=== PATIENT | female | born 1960 | race Caucasian/White ===

== ENCOUNTER 2018-05-21 13:56 | Outpatient (REF) | payer BC, SELFPAY ==
[2018-05-21 22:41] LABS: HCT 43.2 % (36.0-46.0); HGB 14.2 g/dL (12.0-15.5); Mean Corp. HGB Concentration 32.9 g/dL (32.0-36.0); Mean Corpuscular Hemoglobin 30.4 pg (27.0-33.0); Mean Corpuscular Volume 92.5 fL (80-95); Mean Platelet Volume 11.9 fL (8.0-11.0); Platelet Count 227 x1000/uL (130-400); RBC 4.67 m/cumm (4.00-5.20); RBC Distribution Width 13.4 % (11.7-14.6); White Blood Cell Count 6.81 k/cumm (4.4-10.8)
[2018-05-21 22:43] LABS: ALT 31 U/L (12-78); AST 28 U/L (15-37); Albumin 3.9 g/dL (3.4-5.0); Alkaline Phosphatase 121 U/L (46-116); Anion Gap 6.3 mmol/L (3-11); BUN 22 mg/dL (7-18); Bilirubin, Total 1.6 mg/dL (0.2-1.0); CO2 30.7 mmol/L (21.0-32.0); CREATININE 0.67 mg/dL (0.55-1.02); Calcium 9.7 mg/dL (8.5-10.1); Chloride 103 mmol/L (98-107); Creatine Kinase 109 U/L (26-192); Glucose 105 mg/dL (70-100); Potassium 3.3 mmol/L (3.5-5.1); Sodium 140 mmol/L (136-145); Total Protein 7.6 g/dL (6.4-8.2)
== END 2018-05-21 14:16 ==
LOC: NCHCN 13:56
PROVIDERS: PCP Family Medicine; Visit Provider Family Medicine
DX: M79.1 Myalgia (principal); Z01.818 Encounter for other preprocedural examination
CPT/HCPCS: 80053; 82550; 85027

== ENCOUNTER 2018-06-10 08:51 | Day surgery (SDC) | payer BC, SELFPAY ==
--- NOTE | 2018-06-07 15:06 | W.PIPPEYE ---
History of Present Illness Chief Complaint: Progressive decreased vision, left eye Narrative: Patient is a 57-year-old lady with history of myopia who presented with complaints of progressive decreased vision in her left eye at both distance and near. She notes it is not as clear as her right eye. She notes significant difficulty with glare from sunlight and headlights at night. On examination she was noted to have a central posterior subcapsular cataract in the left eye with significant glare disability. The option of cataract surgery was offered to the patient and she wished to proceed NOTE: The Chief Complaint, HPI, Past Medical History, Past Surgical History, Family History, Social History, Medications, and complete Ophthalmic Exam with detailed Assessment and Plan have already been documented in the patient's outpatient ophthalmic record and are not covered again in detail here. [facility] Social History Smoking/Tobacco Use Status: Never Meds Home Medications Medication Instructions Recorded Confirmed Type atorvastatin [Lipitor] 20 mg PO HS 06/28/15 06/05/18 History atorvastatin [Lipitor] 40 mg PO HS 06/28/15 06/05/18 History calcium carbonate-vitamin D3 1 ea PO DAILY 06/28/15 06/05/18 History citalopram [Celexa] 20 mg PO HS 06/28/15 06/05/18 History epinephrine [EpiPen 2-Alpesh] 0.3 mg IM ONCE PRN 06/28/15 06/05/18 History mqkrwasx-zzjbw-mud 2-C-D3-daphne 1 ea PO DAILY 06/28/15 06/05/18 History [Nvibqnxc-Mgdajh-OPK with vit D] hydrochlorothiazide 25 mg PO DAILY tab-cap 06/28/15 06/05/18 History aspirin [Aspir-81] 81 mg PO HS 06/05/18 06/05/18 History potassium citrate 10 meq PO DAILY 06/05/18 06/05/18 History Allergies Allergy/AdvReac Type Severity Reaction Status Date / Time shrimp Allergy Unknown Unverified 09/14/16 13:45 Exam OCULAR EXAM:: Visual acuity at distance: With glasses 20/25 OD, 20/30 OS Pupils: Pupils equal, round, and reactive without afferent pupillary defect IOP: 16 OD 15 OS Extraocular Motility: Normal Pertinent Slit Lamp Findings: Significant for pupils dilating to 6 mm OU. Trace posterior subcapsular cataract, right eye 1+ central posterior subcapsular cataract, left eye Dilated Funduscopic Examination: Disc cupping is 0.35 OU. The optic nerves have good perfusion and normal color. The retinal vasculature is normal without significant tortuosity or abnormality. The maculas are normal in appearance with normal contour and foveal reflex appropriate for age. The peripheral retina and vitreous are normal. BRIGHTNESS ACUITY TESTING (BAT):: Off left eye 20/30 Low: 20/30 Medium: 20/40 High: 20/40 Assessment and Plan (1) Posterior subcapsular age-related cataract of left eye: Current visit: No Status: Acute Assessment: Visually significant cataract, left eye. Plan: Cataract extraction with intraocular lens implantation, left eye Note: NOTE:: The details of the planned surgery, including the risks, indications,limitations,expectations,outcome and possible complications were explained to the patient. The patient understands the complications including, but not limited to: infection, hemorrhage, posterior dislocation of the lens or nuclear fragments which may require the intervention of a vitreoretinal surgeon, possible loss of the eye, or from anesthetic complications. The patient has been made aware of the option of not having surgery, that vision following surgery may not be equal to that prior to surgery, and that the planned surgery may not achieve the intended results. Following this discussion, which the patient appeared to understand, the patient wishes to proceed with cataract surgery with lens implantation of the affected eye to improve and maximize vision.
--- NOTE | 2018-06-07 15:10 | POEE_ITS ---
History of Present Illness Chief Complaint: Progressive decreased vision, left eye Narrative: Patient is a 57-year-old lady with history of myopia who presented with complaints of progressive decreased vision in her left eye at both distance and near. She notes it is not as clear as her right eye. She notes significant difficulty with glare from sunlight and headlights at night. On examination she was noted to have a central posterior subcapsular cataract in the left eye with significant glare disability. The option of cataract surgery was offered to the patient and she wished to proceed NOTE: The Chief Complaint, HPI, Past Medical History, Past Surgical History, Family History, Social History, Medications, and complete Ophthalmic Exam with detailed Assessment and Plan have already been documented in the patient's outpatient ophthalmic record and are not covered again in detail here. [facility] Social History Smoking/Tobacco Use Status: Never Meds Home Medications Medication Instructions Recorded Confirmed Type atorvastatin [Lipitor] 20 mg PO HS 06/28/15 06/05/18 History atorvastatin [Lipitor] 40 mg PO HS 06/28/15 06/05/18 History calcium carbonate-vitamin D3 1 ea PO DAILY 06/28/15 06/05/18 History citalopram [Celexa] 20 mg PO HS 06/28/15 06/05/18 History epinephrine [EpiPen 2-Alpesh] 0.3 mg IM ONCE PRN 06/28/15 06/05/18 History gkphzobf-erfnq-crx 2-C-D3-daphne 1 ea PO DAILY 06/28/15 06/05/18 History [Mlkznwxm-Sltmtk-VIR with vit D] hydrochlorothiazide 25 mg PO DAILY tab-cap 06/28/15 06/05/18 History aspirin [Aspir-81] 81 mg PO HS 06/05/18 06/05/18 History potassium citrate 10 meq PO DAILY 06/05/18 06/05/18 History Allergies Allergy/AdvReac Type Severity Reaction Status Date / Time shrimp Allergy Unknown Unverified 09/14/16 13:45 Exam OCULAR EXAM:: Visual acuity at distance: With glasses 20/25 OD, 20/30 OS Pupils: Pupils equal, round, and reactive without afferent pupillary defect IOP: 16 OD 15 OS Extraocular Motility: Normal Pertinent Slit Lamp Findings: Significant for pupils dilating to 6 mm OU. Trace posterior subcapsular cataract, right eye 1+ central posterior subcapsular cataract, left eye Dilated Funduscopic Examination: Disc cupping is 0.35 OU. The optic nerves have good perfusion and normal color. The retinal vasculature is normal without significant tortuosity or abnormality. The maculas are normal in appearance with normal contour and foveal reflex appropriate for age. The peripheral retina and vitreous are normal. BRIGHTNESS ACUITY TESTING (BAT):: Off left eye 20/30 Low: 20/30 Medium: 20/40 High: 20/40 Assessment and Plan (1) Posterior subcapsular age-related cataract of left eye: Current visit: No Status: Acute Assessment: Visually significant cataract, left eye. Plan: Cataract extraction with intraocular lens implantation, left eye Note: NOTE:: The details of the planned surgery, including the risks, indications, limitations,expectations,outcome and possible complications were explained to the patient. The patient understands the complications including, but not limited to: infection, hemorrhage, posterior dislocation of the lens or nuclear fragments which may require the intervention of a vitreoretinal surgeon, possible loss of the eye, or from anesthetic complications. The patient has been made aware of the option of not having surgery, that vision following surgery may not be equal to that prior to surgery, and that the planned surgery may not achieve the intended results. Following this discussion, which the patient appeared to understand, the patient wishes to proceed with cataract surgery with lens implantation of the affected eye to improve and maximize vision.
[2018-06-10 09:21] VITALS: BP 143/86; PULSE 65; RESP 18; TEMP 36.2; O2SAT 97
[2018-06-10] MEDS: Povidone-Iodine Ophth 30 ML BTL (10:23)
[2018-06-10] MEDS: Lidocaine 2% Jelly 6 ML SYR (10:23)
[2018-06-10] MEDS: Lidocaine 1% Pres-Free 5 ML VIAL (10:23)
[2018-06-10] MEDS: Balanced Salt Soln.-PLUS 500 ML BAG (10:23)
--- NOTE | 2018-06-10 10:45 | W.PM.DSUDISC ---
Discharge Plan Discharge Details Reason For Visit: CATARACT OS Attending Provider: Diallo Garcia Primary Care Provider: Hiral Lopez V Home Meds and New Rx's Prescriptions: No Action atorvastatin [Lipitor] 40 MG tablet 40 mg PO HS RF: 0 atorvastatin [Lipitor] 20 MG tablet 20 mg PO HS RF: 0 citalopram [Celexa] 20 MG tablet 20 mg PO HS RF: 0 hydrochlorothiazide 25 MG tablet 25 mg PO DAILY RF: 0 epinephrine [EpiPen 2-Alpesh] 0.3 MG/0.3 ML auto-injector 0.3 mg IM ONCE PRNRF: 0 xssuhhey-lqnmx-apw 2-C-D3-daphne [Thhgwuhu-Btvbgk-SHA with vit D] 1 EACH tablet 1 ea PO DAILY RF: 0 calcium carbonate-vitamin D3 1 EACH tablet 1 ea PO DAILY RF: 0 aspirin [Aspir-81] 81 mg Tablet,Delayed Release (Dr/Ec) 81 mg PO HS RF: 0 potassium citrate 10 mEq (1,080 mg) Tablet Extended Release 10 meq PO DAILY RF: 0 Discharge Instructions Stand Alone Forms: Post-op Topical Cataract, Yani Daniel (DSU) DS: Diagnosis Discharge Diagnosis (1) Posterior subcapsular age-related cataract of left eye: Status: Resolved
--- NOTE | 2018-06-10 10:45 | W.PM.OP ---
Date of service: 06/10/18 Time of Service: 10:45 Operative Note DATE OF PROCEDURE: 06/10/18 PRE-OP DIAGNOSIS: Cataract, left eye POST-OP DIAGNOSIS: same PROCEDURE: Cataract extraction using phacoemulsification with intraocular lens implant, left eye SURGEON: Diallo Garcia ANESTHESIA: MAC and local (sub-tenon's anesthetic infiltration) PATHOLOGY: none sent COMPLICATIONS: None Patient was transported to: same day Patient's condition: stable Implants: [employer] Shahbaz / [employer] Tecnis [id number] Indications: Progressive decreased vision due to cataract, left eye Procedure Description: CATARACT SURGERY OPERATIVE REPORT PREOPERATIVE DIAGNOSIS: Posterior subcapsular cataract, left eye POSTOPERATIVE DIAGNOSIS: Same OPERATION: Cataract extraction using phacoemulsification with posterior chamber intraocular lens implant, left eye. IOL: IOL Electrical Instrumentation Technician/Model: [employer] Shah[employer] / JOSI Tecnis [id number] IOL Power: +15.50 diopters IOL Serial Number: [id number] Optic Diameter: 6.0mm Haptic/Overall Diameter: 13.0mm PHACO INFO: JorjePhilo Mediaon Vision System with OZil and Active Fluidics Cumulative Dispersed Energy (CDE): 4.06 seconds SURGEON: Diallo Garcia MD, ADELINA ANESTHESIA: Monitored Anesthesia Care (MAC), with local sub-tenon's anesthetic infiltration COMPLICATIONS: None SPECIMENS: None INDICATIONS FOR PROCEDURE: Patient is a 57-year-old lady with complaints of progressive decreased vision in both eyes at both distance and near. She also notes significant difficulty driving at night. On examination she was noted to have a central posterior subcapsular cataract in the left eye. The option of cataract surgery was offered to the patient and she wished to proceed. PROCEDURE: The correct surgical eye was identified and marked as the left eye and the pupil was dilated in the preoperative area using mydriatics, cycloplegics, and NSAIDS (except in aspirin allergic patients). The dilated pupil size was 7.5 mm. Oral sedation was administered in the form of an Imprimis MKO Melt (midazolam 3mg/ketamine 25mg/ondansetron 2mg). The patient was brought to the operating room where cardiopulmonary monitoring was instituted and surgical time-out was performed, confirming the correct operative eye and IOL power. Topical anesthesia was administered and ophthalmic povidone-iodine 5% was instilled into the conjunctival fornices. Lidocaine gel was applied to the cornea and the augustina-ocular area was prepped with Betadine 10% solution and draped in the usual sterile fashion for intraocular surgery. Steri-strips were used to cover the lashes and lid margins and an adhesive eye drape was placed. Care was taken to isolate the lashes and lid margins under the Steri-strips and adhesive eye drape. A lid speculum was placed between the lids of the operative eye and the Ralph-Martha operating microscope was maneuvered into position. Kenisha scissors were then used to make a conjunctival buttonhole approximately 6mm posterior to the limbus in the inferonasal quadrant. Blunt dissection was carried out to expose bare sclera, and a blunt-tipped sub-tenon?s anesthesia cannula was introduced and passed posteriorly along the globe where non-preserved plain lidocaine was injected into posterior sub-Tenon?s space. A sideport knife was used to make a paracentesis port at the 12:00 postion and the anterior chamber was filled with Healon GV. A 2.4mm keratome knife was used to create a half-thickness groove at the limbus and then to construct a three-plane near-clear corneal tunnel extending 2.0mm into clear cornea at the 3:00 position. A flap was raised on the anterior capsule and capsulorhexis forceps were used to complete a continuous curvilinear capsulorhexis of 5.0mm. Balanced salt solution was then used to perform cortical cleaving hydrodissection and nuclear hydrodelineation until the lens could be freely rotated within the capsular bag. The lens nucleus was then disassembled and removed within the capsular bag and iris plane using phacoemulsification. Residual cortical material was removed using the 45-degree angled silicone I/A tip with 0.3mm port. The posterior capsule was carefully polished to remove as much residual lens epithelial cells as safely possible. The capsular bag was then inflated and the anterior chamber deepened with viscoelastic. The lens implant described above was inserted into the capsular bag using the JOSI [place] Injector. A Kuglen hook was used to dial the IOL into position. Residual viscoelastic was then removed first from posterior to the IOL, then from the anterior chamber using the I/A handpiece. The lens implant was noted to center nicely within the capsular bag. The incisions were stromally hydrated, and the anterior chamber was reformed using BSS. Then 0.4cc of moxifloxacin 1.5mg/ml were injected into the capsular bag and anterior chamber. The incisions were checked with a Weck spear and found to be secure. Several drops of ophthalmic povidone-iodine 5% were then applied to the eye followed by two drops of Imprimis combination moxifloxacin/dexamethasone solution. The drapes were removed and a clear plastic protective eye shield was placed over the eye. The patient was then returned to Same Day Surgery in stable condition.
--- NOTE | 2018-06-10 10:48 | ROE_ITS ---
Date of service: 06/10/18 Time of Service: 10:45 Operative Note DATE OF PROCEDURE: 06/10/18 PRE-OP DIAGNOSIS: Cataract, left eye POST-OP DIAGNOSIS: same PROCEDURE: Cataract extraction using phacoemulsification with intraocular lens implant, left eye SURGEON: Diallo Garcia ANESTHESIA: MAC and local (sub-tenon's anesthetic infiltration) PATHOLOGY: none sent COMPLICATIONS: None Patient was transported to: same day Patient's condition: stable Implants: Shahbaz and Shahbaz / [employer] Tecnis [id number] Indications: Progressive decreased vision due to cataract, left eye Procedure Description: CATARACT SURGERY OPERATIVE REPORT PREOPERATIVE DIAGNOSIS: Posterior subcapsular cataract, left eye POSTOPERATIVE DIAGNOSIS: Same OPERATION: Cataract extraction using phacoemulsification with posterior chamber intraocular lens implant, left eye. IOL: IOL Director Of Academic Support/Model: [employer] Shahbaz / JOSI Tecnis [id number] IOL Power: +15.50 diopters IOL Serial Number: [id number] Optic Diameter: 6.0mm Haptic/Overall Diameter: 13.0mm PHACO INFO: JorjeWellon Vision System with OZil and Active Fluidics Cumulative Dispersed Energy (CDE): 4.06 seconds SURGEON: Diallo Garcia MD, ADELINA ANESTHESIA: Monitored Anesthesia Care (MAC), with local sub-tenon's anesthetic infiltration COMPLICATIONS: None SPECIMENS: None INDICATIONS FOR PROCEDURE: Patient is a 57-year-old lady with complaints of progressive decreased vision in both eyes at both distance and near. She also notes significant difficulty driving at night. On examination she was noted to have a central posterior subcapsular cataract in the left eye. The option of cataract surgery was offered to the patient and she wished to proceed. PROCEDURE: The correct surgical eye was identified and marked as the left eye and the pupil was dilated in the preoperative area using mydriatics, cycloplegics, and NSAIDS (except in aspirin allergic patients). The dilated pupil size was 7.5 mm. Oral sedation was administered in the form of an Imprimis MKO Melt (midazolam 3mg/ketamine 25mg/ondansetron 2mg). The patient was brought to the operating room where cardiopulmonary monitoring was instituted and surgical time-out was performed, confirming the correct operative eye and IOL power. Topical anesthesia was administered and ophthalmic povidone-iodine 5% was instilled into the conjunctival fornices. Lidocaine gel was applied to the cornea and the augustina-ocular area was prepped with Betadine 10% solution and draped in the usual sterile fashion for intraocular surgery. Steri-strips were used to cover the lashes and lid margins and an adhesive eye drape was placed. Care was taken to isolate the lashes and lid margins under the Steri-strips and adhesive eye drape. A lid speculum was placed between the lids of the operative eye and the Ralph-Martha operating microscope was maneuvered into position. Kenisha scissors were then used to make a conjunctival buttonhole approximately 6mm posterior to the limbus in the inferonasal quadrant. Blunt dissection was carried out to expose bare sclera, and a blunt-tipped sub-tenon? s anesthesia cannula was introduced and passed posteriorly along the globe where non-preserved plain lidocaine was injected into posterior sub-Tenon?s space. A sideport knife was used to make a paracentesis port at the 12:00 postion and the anterior chamber was filled with Healon GV. A 2.4mm keratome knife was used to create a half-thickness groove at the limbus and then to construct a three-plane near-clear corneal tunnel extending 2.0mm into clear cornea at the 3:00 position. A flap was raised on the anterior capsule and capsulorhexis forceps were used to complete a continuous curvilinear capsulorhexis of 5.0mm. Balanced salt solution was then used to perform cortical cleaving hydrodissection and nuclear hydrodelineation until the lens could be freely rotated within the capsular bag. The lens nucleus was then disassembled and removed within the capsular bag and iris plane using phacoemulsification. Residual cortical material was removed using the 45-degree angled silicone I/A tip with 0.3mm port. The posterior capsule was carefully polished to remove as much residual lens epithelial cells as safely possible. The capsular bag was then inflated and the anterior chamber deepened with viscoelastic. The lens implant described above was inserted into the capsular bag using the JOSI [place] Injector. A Kuglen hook was used to dial the IOL into position. Residual viscoelastic was then removed first from posterior to the IOL, then from the anterior chamber using the I/A handpiece. The lens implant was noted to center nicely within the capsular bag. The incisions were stromally hydrated , and the anterior chamber was reformed using BSS. Then 0.4cc of moxifloxacin 1.5mg/ml were injected into the capsular bag and anterior chamber. The incisions were checked with a Weck spear and found to be secure. Several drops of ophthalmic povidone-iodine 5% were then applied to the eye followed by two drops of Imprimis combination moxifloxacin/dexamethasone solution. The drapes were removed and a clear plastic protective eye shield was placed over the eye. The patient was then returned to Same Day Surgery in stable condition.
== END 2018-06-10 11:19 | disposition home or self-care (01) ==
LOC: SUR 08:52
PROVIDERS: PCP Family Medicine; Visit Provider Ophthalmology
PROC: (CPT 66984; principal; 2018-06-10 11:10)
DX: H25.042 Posterior subcapsular polar age-related cataract, left eye (principal); I10 Essential (primary) hypertension
CPT/HCPCS: 66984; V2632

== ENCOUNTER 2019-01-31 10:43 | Outpatient (CLI) | payer BC, SELFPAY ==
[2019-01-31 11:56] LABS: ALT 33 U/L (12-78); AST 26 U/L (15-37); Albumin 3.5 g/dL (3.4-5.0); Alkaline Phosphatase 123 U/L (46-116); Anion Gap 6.4 mmol/L (3-11); BUN 14 mg/dL (7-18); Bilirubin, Total 1.6 mg/dL (0.2-1.0); CO2 31.6 mmol/L (21.0-32.0); CREATININE 0.63 mg/dL (0.55-1.02); Calcium 9.4 mg/dL (8.5-10.1); Chloride 101 mmol/L (98-107); Cholesterol 189 mg/dL (50-200); Glucose 100 mg/dL (70-100); HDL Cholesterol 42 mg/dL (40-60); LDL CHOLESTEROL 131 mg/dL (<100); Sodium 139 mmol/L (136-145); TSH 2.38 uIU/mL (0.358-3.74); Total Protein 6.9 g/dL (6.4-8.2); Triglyceride 73 mg/dL (30-150)
== END 2019-01-31 11:03 ==
PROVIDERS: PCP Family Medicine; Visit Provider Family Medicine
DX: I10 Essential (primary) hypertension (principal); E78.5 Hyperlipidemia, unspecified
CPT/HCPCS: 36415; 80053; 80061; 83721; 84443

== ENCOUNTER 2019-05-21 13:51 | Outpatient (REF) | payer BC, SELFPAY | END 2019-05-21 14:11 | LOC: NCHCN 13:51 | PROVIDERS: PCP Family Medicine; Visit Provider Physician Assistant Medical | DX: R30.0 Dysuria (principal) | CPT/HCPCS: 87480; 87510; 87660 ==

== ENCOUNTER 2019-12-10 13:44 | Outpatient (REF) | payer BC, SELFPAY ==
[2019-12-10 19:08] LABS: Abs Immature Grans 0.04 k/cumm (0.0-0.09); Absolute Basophil Count 0.03 k/cumm (0.0-0.2); Absolute Eosinophil Count 0.36 k/cumm (0.0-0.7); Absolute Lymphocyte Count 1.61 k/cumm (1.2-3.4); Absolute Monocyte Count 0.74 k/cumm (0.11-0.7); Absolute Neutrophil Count 6.54 k/cumm (1.2-6.7); Basophils % 0.3; Eosinophils % 3.9; HCT 42.9 % (36.0-46.0); HGB 14.4 g/dL (12.0-15.5); Immature Grans % 0.4 %; Lymphocytes % 17.3; Mean Corp. HGB Concentration 33.6 g/dL (32.0-36.0); Mean Corpuscular Hemoglobin 30.1 pg (27.0-33.0); Mean Corpuscular Volume 89.7 fL (80-95); Mean Platelet Volume 12.1 fL (8.0-11.0); Monocytes % 7.9; Neutrophils % 70.2; Platelet Count 227 x1000/uL (130-400); RBC 4.78 m/cumm (4.00-5.20); RBC Distribution Width 12.7 % (11.7-14.6); White Blood Cell Count 9.32 k/cumm (4.4-10.8)
[2019-12-10 19:28] LABS: ALT 41 U/L (14-59); AST 33 U/L (15-37); Calculated LDL 171 mg/dL (<100); Cholesterol 224 mg/dL (<200); HDL Cholesterol 40 mg/dL (40-60); TSH 1.58 uIU/mL (0.36-3.74); Triglyceride 65 mg/dL (<150)
[2019-12-10 19:50] LABS: Creatine Kinase 78 U/L (26-192); Lipase 122 U/L (73-393)
[2019-12-11 08:44] LABS: Albumin 3.7 g/dL (3.4-5.0); CREATININE 0.71 mg/dL (0.55-1.02); Total Protein 7.7 g/dL (6.4-8.2)
== END 2019-12-10 14:04 ==
LOC: NCHCN 13:44
PROVIDERS: PCP Family Medicine; Visit Provider Nurse Practitioner Family
DX: R53.83 Other fatigue (principal); E78.5 Hyperlipidemia, unspecified; R11.10 Vomiting, unspecified; M54.9 Dorsalgia, unspecified; K83.8 Other specified diseases of biliary tract; K80.20 Calculus of gallbladder without cholecystitis without obstruction
CPT/HCPCS: 80061; 82550; 83690; 82040; 82565; 84155; 84443; 84450; 84460; 85025

== ENCOUNTER 2019-12-10 13:58 | Outpatient (CLI) | payer BC, SELFPAY ==
--- NOTE | 2019-12-10 | DI.US_ITS ---
EXAM: US ABDOMEN CLINICAL HISTORY: RUQ ABDOMINAL PAIN, R10.9, +TABOR'S SIGN, ACHINESS, CONSTIPATION, NAUSEA, 6-POUND WEIGHT LOSS IN 2 WEEKS, LOSS OF APPETITE, H/O CHOLELITHIASIS TECHNIQUE: Ultrasound abdomen performed using standard protocol. COMPARISON: No exams were available for comparison FINDINGS: LIVER: The majority of the liver is echogenic consistent with fatty infiltration. The left lobe has a heterogeneous echogenicity with intrahepatic biliary ductal dilatation. Hepatopetal flow in the Po rtal Vein. GALLBLADDER: Multiple gallstones are present. There are stones noted within the gallbladder neck. N o evidence of wall thickening. No pericholecystic fluid identified. Gallbladder sludge is present. KIDNEYS: Kidneys are symmetric in size. No evidence of renal calculi. No evidence of hydronephrosis. No renal mass or cyst identified. BILIARY SYSTEM: Common bile duct measures 4.6. No intrahepatic biliary ductal dilation. TABOR'S SIGN: Negative. PANCREAS: Normal where visualized. SPLEEN: Not enlarged. ABDOMINAL AORTA AND IVC: Visualized portions normal caliber. ASCITES: None seen. IMPRESSION: 1. Heterogeneous echogenicity in the left lobe of the liver with intrahepatic biliary ductal dilatati on. Possibility of an obstructing mass or stone should be considered. A CT scan of the abdomen with out and with intravenous contrast material is recommended for further evaluation. 2. Cholelithiasis. Gallbladder sludge. No definite evidence of acute cholecystitis. 3. Hepatic steatosis. DATA REPOSITORY:
== END 2019-12-10 14:18 ==
PROVIDERS: PCP Family Medicine; Visit Provider Nurse Practitioner Family
DX: R10.11 Right upper quadrant pain (principal); K59.00 Constipation, unspecified; R11.0 Nausea; R63.4 Abnormal weight loss; K80.20 Calculus of gallbladder without cholecystitis without obstruction; K76.0 Fatty (change of) liver, not elsewhere classified; K76.89 Other specified diseases of liver
CPT/HCPCS: 76700

== ENCOUNTER 2019-12-11 08:30 | Outpatient (CLI) | payer BC, SELFPAY ==
--- NOTE | 2019-12-11 | DI.CT_ITS ---
EXAM: CT ABDOMEN WO/W CLINICAL HISTORY: ABD PAIN, R10.9, GALLSTONES, K80.20, TECHNIQUE: Imaging Protocol: Axial computed tomography images with coronal and sagittal reformatted images were created and reviewed CONTRAST MATERIAL: Intravenous: Omnipaque 350 Contrast volume:100 mL Oral: Yes COMPARISON: US ABDOMEN from 12/10/2019 FINDINGS: ABDOMEN: Lung Bases: Ill-defined noncalcified pulmonary nodules are seen in the bases. The findings are suspi cious for metastatic disease. Liver: There is decreased attenuation in the lateral segment of the left lobe of the liver. There ap pears to be mild intrahepatic biliary ductal dilatation in the left lobe. The remainder of the liver is unremarkable. Portal, Superior Mesenteric, and Splenic Veins: Unremarkable. Gallbladder and Biliary Tract: There are multiple stones present. No extrahepatic biliary ductal dil atation. Pancreas: The head and proximal body of the pancreas appears mildly atrophic. The tail of the pancre as has a solid appearance to it measuring 4.5 x 2.2 cm. A pancreatic mass cannot be excluded. There does appear to be mild narrowing of the adjacent splenic vein. Spleen: Normal. Adrenals: No masses seen. Kidneys: Normal size, contour and axis. No radiodense stones or obstructive uropathy. No masses seen. There are a few tiny hypodensities in the kidneys. They are too small for further characterization but likely reflect small cysts. Abdominal Aorta: Abdominal portion non-dilated. Mild atherosclerosis. Bowel: No obstruction or bowel wall thickening. Moderate amount of retained stool in the colon. Smal l hiatal hernia. Peritoneal Cavity: Soft tissue densities are seen associated with the omentum and adjacent to the gal lbladder. Findings are suspicious for omental metastatic disease. Lymph Nodes: Within normal limits. Bones: Degenerative changes are seen in the spine but no aggressive osseous lesions are identified. Soft Tissues: Unremarkable. IMPRESSION: 1. Solid appearing area in the tail of the pancreas suspicious for a pancreatic mass. Neoplasm shoul d be considered. There appears to be mild narrowing of the adjacent splenic vein. 2. Area of decreased attenuation in the lateral segment of the left lobe of the liver. Primary hepat ic mass or neoplasm should be considered. Associated mild intrahepatic biliary ductal dilatation is seen in the left lobe. 3. Soft tissue densities associated with the omentum and adjacent to the gallbladder and liver suspic ious for omental metastatic disease. 4. Multiple ill-defined pulmonary nodules suspicious for metastatic disease 5. Cholelithiasis. No extrahepatic biliary ductal dilatation. Incidental Findings Critical Findings RADIATION DOSE DELIVERED: DATA REPOSITORY: All CT scans at this facility are submitted to the National Radiology Data Registry (NRDR) Dose Index Registry (DIR) with the [employer] (A[employer]). RADIATION OPTIMIZATION: All CT scans at this facility use at least one of these dose optimization te chniques: automated exposure control; mA and/or kV adjustment per patient size (includes targeted exa ms where dose is matched to clinical indication); or iterative reconstruction.
[2019-12-11] MEDS: Breeza Beverage 473 ML BTL PO (11:28)
[2019-12-11] MEDS: Normal Saline - Diluent 50 ML VIAL IV (11:31)
[2019-12-11] MEDS: Omnipaque 350 MG/ML 100 ML BTL IJ (11:31)
== END 2019-12-11 08:50 ==
PROVIDERS: PCP Family Medicine; Visit Provider Nurse Practitioner Family
DX: R10.9 Unspecified abdominal pain (principal); K80.20 Calculus of gallbladder without cholecystitis without obstruction; R91.8 Other nonspecific abnormal finding of lung field; K86.89 Other specified diseases of pancreas; K76.89 Other specified diseases of liver; J98.4 Other disorders of lung; K66.8 Other specified disorders of peritoneum
CPT/HCPCS: 74170; J3490

== ENCOUNTER 2019-12-12 09:56 | Outpatient (CLI) | payer BC, SELFPAY ==
--- NOTE | 2019-12-12 14:42 | DI.CT_ITS ---
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 COMPARISON: CT ABDOMEN WO/W from 12/11/2019 FINDINGS: Tracheobronchial tree: Patent where visualized. Mediastinum and Mitzy: The largest mediastinal lymph node has a short axis diameter of 0.9 cm. There is no significant thoracic adenopathy present. Pulmonary parenchyma: There are multiple pulmonary nodules present. The largest measures 0.9 cm and is located in the left lower lobe. No focal consolidating infiltrates are present. Pleura: No effusion or pneumothorax. Heart: The heart is not dilated. Mild coronary artery calcifications are seen. No significant perica rdial effusion. Aorta: Thoracic aorta non-dilated. Atherosclerosis. Lymph nodes: Please see above. Bones: DISH is seen in the spine. No aggressive osseous lesions are identified. IMPRESSION: Multiple pulmonary nodules suspicious for metastatic disease. DATA REPOSITORY: All CT scans at this facility are submitted to the National Radiology Data Registry (NRDR) Dose Index Registry (DIR) with the [employer] (ACR). RADIATION OPTIMIZATION: All CT scans at this facility use at least one of these dose optimization te chniques: automated exposure control; mA and/or kV adjustment per patient size (includes targeted exa ms where dose is matched to clinical indication); or iterative reconstruction.
--- NOTE | 2019-12-12 14:43 | DI.CT_ITS ---
EXAM: CT PELVIC W CLINICAL HISTORY: CANCER METASTATIC TO OMENTUM, C78.6. TECHNIQUE: Imaging Protocol: Axial computed tomography images with coronal and sagittal reformatted images were created and reviewed. CONTRAST MATERIAL: Intravenous: Omnipaque 350 Contrast volume:100 mL contrast route:IV - Oral: Yes COMPARISON: CT ABDOMEN WO/W from 12/11/2019 FINDINGS: Bladder: Symmetric distention, no gross wall thickening. Reproductive organs: Patient appears to be status post hysterectomy. Bowel: No obstruction or bowel wall thickening. Colonic diverticulosis but no evidence of acute diver ticulitis. Peritoneal cavity: Trace amount of pelvic ascites. Soft tissue density seen in the omentum suspiciou s for metastatic disease. Lymph nodes: No adenopathy. Vasculature: Atherosclerosis. Soft tissues: Sutures in the anterior abdominal wall. Bones: Degenerative changes in the lumbar spine. No aggressive osseous lesions. IMPRESSION: 1. Soft tissue densities seen in the omentum suspicious for metastatic disease. 2. Trace amount of pelvic ascites. 3. Colonic diverticulosis but no evidence of acute diverticulitis. DATA REPOSITORY: All CT scans at this facility are submitted to the National Radiology Data Registry (NRDR) Dose Index Registry (DIR) with the [employer] (ACR). RADIATION OPTIMIZATION: All CT scans at this facility use at least one of these dose optimization te chniques: automated exposure control; mA and/or kV adjustment per patient size (includes targeted exa ms where dose is matched to clinical indication); or iterative reconstruction.
[2019-12-15 10:20] LABS: CEA 20.2 ng/mL (See Note)
== END 2019-12-12 10:16 ==
PROVIDERS: PCP Family Medicine; Visit Provider Family Medicine
DX: C78.6 Secondary malignant neoplasm of retroperitoneum and peritoneum (principal); K86.9 Disease of pancreas, unspecified; K76.9 Liver disease, unspecified; K57.30 Diverticulosis of large intestine without perforation or abscess without bleeding; R18.8 Other ascites; R59.0 Localized enlarged lymph nodes; J98.4 Other disorders of lung
CPT/HCPCS: 71260; 72193; 82378

== ENCOUNTER 2019-12-22 11:50 | Emergency (ER) | payer BC, SELFPAY ==
[2019-12-22 11:53] VITALS: BP 117/97; PULSE 105; RESP 20; TEMP 36.8; O2SAT 94
--- NOTE | 2019-12-22 12:26 | ED.GENADUL_ITS ---
Discharge Plan Disposition Patient Disposition: HOME Condition: Stable Discharge Details Chief Complaint: Abd Prob Clinical Impression: Abdominal pain Primary Care Provider: Hiral Lopez V ED Provider: Karie Amaral Home Meds and New Rx's Prescriptions: New tramadol 50 mg tablet 50 mg PO Q8H PRN (Reason: pain) 3 Days Qty: 7 RF: 0 ondansetron 4 mg tablet,disintegrating 4 mg PO Q8H PRN (Reason: nausea and vomiting) Qty: 10 RF: 0 No Action atorvastatin [Lipitor] 40 MG tablet 40 mg PO HS RF: 0 atorvastatin [Lipitor] 20 MG tablet 20 mg PO HS RF: 0 citalopram [Celexa] 20 MG tablet 20 mg PO HS RF: 0 hydrochlorothiazide 25 MG tablet 25 mg PO DAILY RF: 0 epinephrine [EpiPen 2-Alpesh] 0.3 MG/0.3 ML auto-injector 0.3 mg IM ONCE PRNRF: 0 [id number] with vit D 1 EACH tablet 1 ea PO DAILY RF: 0 calcium carbonate-vitamin D3 1 EACH tablet 1 ea PO DAILY RF: 0 aspirin [Aspir-81] 81 mg Tablet,Delayed Release (Dr/Ec) 81 mg PO HS RF: 0 potassium citrate 10 mEq (1,080 mg) Tablet Extended Release 10 meq PO DAILY RF: 0 famotidine 20 mg Tablet 20 mg PO QHS RF: 0 Discharge Instructions Instructions: Abdominal Pain (ED) Additional Instructions: Follow up with primary care provider in 3-5 days. Return to ED sooner if any worsening or concerns. Increase oral fluids. Take medications as directed. Return if any dizziness, fever, worsening pain despite medications or any concerns. Referrals: Hiral Lopez MD [Primary Care Provider] - Medical Decision Making 59-year-old female presents with right upper quadrant abdominal pain which worsened this morning. She had a ultrasound done on December 11 which showed gallstones, gallbladder sludge, no acute cholecystitis. She has had recent work-up for possible masses and had a recent endoscopy with a liver biopsy on at [facility]. She denies any other associated symptoms including nausea vomiting diarrhea, fever, chills. Denies dysuria. Patient reports that she has been taking Advil as needed for pain. 1434: Spoke with Dr. Austin radiologist regarding CT results, largely unchanged from last week's CT scan. However he did note that there are is some increased free fluid noted to the peritoneal cavity which could be a result of her recent procedure and biopsy on but cannot exclude a small bleed or hematoma. At this time feel patient is stable has remained hemodynamically stable throughout stay it is safe to discharge her home with some pain medications and follow-up with oncologist. I did pull the endoscopy procedure note from [facility] and at this time cytology results are not available. FINDINGS: CT examination of the abdomen and pelvis was performed with bolus infusion of 100 cc of Omnipaque 350. Current examination is compared with prior scans from December 11. There is reportedly high suspicion of malignancy with multiple presumed intrapulmonary metastases, multiple poorly defined masses again seen in lower lung amador on this abdominal CT. Low attenuation again noted in left hepatic lobe with mild left hepatic lobe biliary dilatation, unchanged. Cholelithiasis again noted. No subcapsular hepatic hematoma. Questionable pancreatic mass again noted. Increased prominence of omental radiodensities t hroughout the abdomen predominantly epigastric and subdiaphragmatic., presumably metastatic. Cindi pancreatic patrizia prominence again noted, unchanged. No free intraperitoneal air. There is mild quantity of free fluid in the peritoneal cavity, in the pelvis and right upper quadrant, this is a nonspecific finding and may represent ascites from peritoneal head implants, intraperitoneal hemorrhage not excluded but less likely due to low attenuation of the fluid. No evidence of bowel obstruction. No focal vascular abnormality seen. Adrenals and kidneys are unremarkable. IMPRESSION: Increased prominence of presumed peritoneal/omental metastases in comparison with recent study of December 10 and December 11. Small quantity of free intraperitoneal fluid with increased intraperitoneal fluid since the prior examination, question secondary to metastatic process. Intraperitoneal hemorrhage not excluded. Presumed pulmonary metastases again noted, unchanged. 1446: Discussed CT results with patient, verbalized understanding, patient taking p.o. fluids without difficulty. Patient instructed to follow-up with her PCP. Plan is to discharge her home given her strict return instructions. We will give tramadol for pain control and Zofran as needed for nausea. Medical Records Medical records reviewed: Yes I reviewed the patient's medical records. Lab Data Lab results reviewed: Yes I reviewed the patient's lab results. HPI General Mode of arrival: ambulatory . Date/Time Provider Initiated Documentation: 12/22/19 12:08 . Limitations to Documentation: no limitations . Information obtained by: patient . HPI Narrative: 59-year-old female presents with right upper quadrant abdominal pain which worsened this morning. She had a ultrasound done on December 11 which showed gallstones, gallbladder sludge, no acute cholecystitis. She has had recent work-up for possible masses and had a recent endoscopy with a liver biopsy on at [facility]. She denies any other associated symptoms including nausea vomiting diarrhea, fever, chills. Denies dysuria. Patient reports that she has been taking Advil as needed for pain. Related Data Home Medications Medication Instructions Recorded Confirmed [id number] with vit D 1 ea PO DAILY 06/28/15 12/22/19 atorvastatin [Lipitor] 20 mg PO HS 06/28/15 12/22/19 atorvastatin [Lipitor] 40 mg PO HS 06/28/15 12/22/19 calcium carbonate-vitamin D3 1 ea PO DAILY 06/28/15 12/22/19 citalopram [Celexa] 20 mg PO HS 06/28/15 12/22/19 epinephrine [EpiPen 2-Alpesh] 0.3 mg IM ONCE PRN 06/28/15 12/22/19 hydrochlorothiazide 25 mg PO DAILY tab-cap 06/28/15 12/22/19 aspirin [Aspir-81] 81 mg PO HS 06/05/18 12/22/19 potassium citrate 10 meq PO DAILY 06/05/18 12/22/19 famotidine 20 mg PO QHS 12/22/19 12/22/19 ondansetron 4 mg PO Q8H PRN #10 tab 12/22/19 tramadol 50 mg PO Q8H PRN 3 Days #7 tab 12/22/19 Previous Rx's Medication Instructions Recorded ondansetron 4 mg PO Q8H PRN #10 tab 12/22/19 tramadol 50 mg PO Q8H PRN 3 Days #7 tab 12/22/19 Allergies Allergy/AdvReac Type Severity Reaction Status Date / Time shellfish derived Allergy Severe Anaphylaxsi Unverified 12/22/19 12:24 s shrimp Allergy Unknown Unverified 12/22/19 12:24 General Stated Complaint: Abd Prob ERVIN: 3 Review of Systems Narrative: Constitutional: Negative for weight loss, alert and oriented, well groomed, normal body habitus, appears comfortable. HEENT: Denies trauma, headaches, blurry vision, nasal discharge, sore throat, trouble swallowing. Chest: Denies chest pain, palpitations, irregular rhythm, hypertension. Respiratory: Denies Shortness of breath, cough, hemoptysis. GI: Denies nausea, vomiting, diarrhea, constipation. Reports sudden increase in right upper quadrant abdominal pain. : Denies dysuria, hematuria, flank pain, rectal bleeding. Neuro: Denies dizziness, blurry vision, weakness, syncope, headache or facial numbness. Hematologic: Denies easy bruising, intolerance to heat or cold, hair loss. [facility] Medical History Posterior subcapsular age-related cataract of left eye (Resolved) Social History Smoking/Tobacco Use Status: Never Alcohol Intake: never Drug use: Never Do you feel safe at home: Yes Do you feel safe in your relationship?: Yes Exam Narrative Exam Narrative: Constitutional: Alert and oriented x3. Appears stated age. Obese body habitus. Head: Normocephalic, no trauma. Eyes: Pupils PERRLA, Red reflex noted, EOM's intact. Eyelids symmetrical withour lesions, discharge, or swelling. ENT: Bilateral TM's WNL, External ear normal to inspection, no mastoid TTP, swelling, or erythema, Nasal turbinates WNL, no nasal discharge. Normal dentition, Posterior pharynx WNL, no exudate. Chest: RRR, Normal S1, S2, distal pulses intact. Resp: Lungs clear to auscultation bilaterally, no wheezes, rales, or rhonchi. Abdomen: Right upper quadrant abdominal pain to palpation, positive Wilson sign. Abdomen is soft normal active bowel sounds all 4 quadrants. Musculoskeletal: Normal gait, 5/5 strength to all four extremities. Skin: No suspicious rashes or lesions. Capillary refill less than 2 sec. Neurologic: Cranial nerves II-XII intact. Alert and oriented x 3. DTR's intact. Hematologic/Lymphatic: No ecchymosis, no lymphadenopathy. Course Vital Signs Vital signs: Vital Signs Temperature 36.8 C 12/22/19 11:53 Pulse 105 H 12/22/19 11:53 Respiratory Rate 20 12/22/19 11:53 Blood Pressure 117/97 H 12/22/19 11:53 Pulse Oximetry 94 L 12/22/19 11:53 Temperature 36.8 C 12/22/19 11:53 Temperature Source Skin 12/22/19 11:53 Pulse 105 H 12/22/19 11:53 Respiratory Rate 20 12/22/19 11:53 Respiratory Effort Non-Labored 12/22/19 12:21 Blood Pressure 117/97 H 12/22/19 11:53 Blood Pressure Position Sitting 12/22/19 11:53 Pulse Oximetry 94 L 12/22/19 11:53 Oxygen Delivery Method Room Air 12/22/19 11:53 Oxygen Flow Rate 0 12/22/19 11:53 Pain Level 0 12/22/19 12:12 Comment 12/22/19 11:53
[2019-12-22 12:38] LABS: Abs Immature Grans 0.04 k/cumm (0.0-0.09); Absolute Basophil Count 0.02 k/cumm (0.0-0.2); Absolute Eosinophil Count 0.26 k/cumm (0.0-0.7); Absolute Lymphocyte Count 0.96 k/cumm (1.2-3.4); Absolute Monocyte Count 0.98 k/cumm (0.11-0.7); Absolute Neutrophil Count 9.71 k/cumm (1.2-6.7); Basophils % 0.2; Eosinophils % 2.2; HCT 42.2 % (36.0-46.0); Immature Grans % 0.3 %; Mean Corp. HGB Concentration 33.2 g/dL (32.0-36.0); Mean Corpuscular Hemoglobin 30.9 pg (27.0-33.0); Mean Corpuscular Volume 93.2 fL (80-95); Mean Platelet Volume 11.8 fL (8.0-11.0); Monocytes % 8.2; Neutrophils % 81.1; Platelet Count 226 x1000/uL (130-400); RBC 4.53 m/cumm (4.00-5.20); RBC Distribution Width 13.2 % (11.7-14.6); White Blood Cell Count 11.97 k/cumm (4.4-10.8)
[2019-12-22 12:53] LABS: ALT 39 U/L (14-59); AST 28 U/L (15-37); Albumin 3.4 g/dL (3.4-5.0); Alkaline Phosphatase 145 U/L (46-116); Anion Gap 8.3 mmol/L (3-11); BUN 17 mg/dL (7-18); Bilirubin, Total 1.3 mg/dL (0.2-1.0); CO2 29.7 mmol/L (21.0-32.0); CREATININE 0.77 mg/dL (0.55-1.02); Calcium 10.1 mg/dL (8.5-10.1); Chloride 102 mmol/L (98-107); Glucose 121 mg/dL (74-106); Lipase 54 U/L (73-393); Potassium 3.3 mmol/L (3.5-5.1); Sodium 140 mmol/L (136-145)
[2019-12-22] MEDS: MORPHine 10 MG/ML VIAL 2 MG IVP (13:06)
[2019-12-22] MEDS: Normal Saline Flush 10 ML SYR IVP (13:07)
[2019-12-22] MEDS: Omnipaque 350 MG/ML 100 ML BTL IJ (14:18)
[2019-12-22] MEDS: Normal Saline - Diluent 50 ML VIAL IV (14:18)
--- NOTE | 2019-12-22 14:20 | DI.CT_ITS ---
EXAM: CT ABDOMEN PELVIS W CLINICAL HISTORY: RUQ abdominal pain s/p biopsy TECHNIQUE: COMPARISON: CT ABDOMEN WO/W from 12/11/2019 CT PELVIC W from 12/12/2019 CT CHEST W from 12/12/2019 CT PELVIC W from 12/12/2019 FINDINGS: CT examination of the abdomen and pelvis was performed with bolus infusion of 100 cc of Omnipaque 350 . Current examination is compared with prior scans from December 11. There is reportedly high suspic ion of malignancy with multiple presumed intrapulmonary metastases, multiple poorly defined masses ag ain seen in lower lung amador on this abdominal CT. Low attenuation again noted in left hepatic lobe with mild left hepatic lobe biliary dilatation, unchanged. Cholelithiasis again noted. No subcapsu lar hepatic hematoma. Questionable pancreatic mass again noted. Increased prominence of omental rad iodensities throughout the abdomen predominantly epigastric and subdiaphragmatic., presumably metasta tic. Cindi pancreatic patrizia prominence again noted, unchanged. No free intraperitoneal air. There is mild quantity of free fluid in the peritoneal cavity, in the p ping and right upper quadrant, this is a nonspecific finding and may represent ascites from peritone al head implants, intraperitoneal hemorrhage not excluded but less likely due to low attenuation of t he fluid. No evidence of bowel obstruction. No focal vascular abnormality seen. Adrenals and kidne ys are unremarkable. IMPRESSION: Increased prominence of presumed peritoneal/omental metastases in comparison with recent study of Nov and December 11. Small quantity of free intraperitoneal fluid with increased intraperitoneal fl uid since the prior examination, question secondary to metastatic process. Intraperitoneal hemorrhag e not excluded. Presumed pulmonary metastases again noted, unchanged.
[2019-12-22 14:55] VITALS: BP 134/73; PULSE 74; RESP 18; TEMP 36.5; O2SAT 96
[2019-12-22 15:31] VITALS: BP 113/58; PULSE 76; RESP 16; TEMP 36.8; O2SAT 94
== END 2019-12-22 15:37 | disposition home or self-care (01) ==
PROVIDERS: Emergency Provider Registered Nurse Emergency; PCP Family Medicine
DX: R10.11 Right upper quadrant pain (principal); R93.5 Abnormal findings on diagnostic imaging of other abdominal regions, including retroperitoneum
CPT/HCPCS: 80053; 83690; 96374; 99285; 74177; 85025; 99284; J2270; J3490

== ENCOUNTER 2020-01-09 03:36 | Outpatient (RCR) | payer BC, SELFPAY ==
[2020-01-09 07:46] LABS: Abs Immature Grans 0.02 k/cumm (0.0-0.09); Absolute Basophil Count 0.02 k/cumm (0.0-0.2); Absolute Eosinophil Count 0.45 k/cumm (0.0-0.7); Absolute Lymphocyte Count 1.37 k/cumm (1.2-3.4); Absolute Monocyte Count 0.63 k/cumm (0.11-0.7); Absolute Neutrophil Count 6.56 k/cumm (1.2-6.7); Basophils % 0.2; HCT 42.1 % (36.0-46.0); HGB 13.8 g/dL (12.0-15.5); Immature Grans % 0.2 %; Lymphocytes % 15.1; Mean Corp. HGB Concentration 32.8 g/dL (32.0-36.0); Mean Corpuscular Hemoglobin 30.6 pg (27.0-33.0); Mean Corpuscular Volume 93.3 fL (80-95); Mean Platelet Volume 11.2 fL (8.0-11.0); Neutrophils % 72.5; Platelet Count 212 x1000/uL (130-400); RBC 4.51 m/cumm (4.00-5.20); RBC Distribution Width 13.7 % (11.7-14.6); White Blood Cell Count 9.05 k/cumm (4.4-10.8)
[2020-01-09] MEDS: Normal Saline Flush 10 ML SYR IVP (07:48)
[2020-01-09 08:01] LABS: ALT 40 U/L (14-59); AST 43 U/L (15-37); Albumin 3.3 g/dL (3.4-5.0); Alkaline Phosphatase 182 U/L (46-116); Anion Gap 6.3 mmol/L (3-11); BUN 17 mg/dL (7-18); Bilirubin, Total 1.5 mg/dL (0.2-1.0); CO2 30.7 mmol/L (21.0-32.0); Calcium 9.6 mg/dL (8.5-10.1); Chloride 101 mmol/L (98-107); Glucose 117 mg/dL (74-106); Potassium 3.3 mmol/L (3.5-5.1); Sodium 138 mmol/L (136-145); Total Protein 7.8 g/dL (6.4-8.2)
[2020-01-12 11:07] LABS: CEA 36.4 ng/mL (See Note)
[2020-01-12 11:11] LABS: CA 19-9 3 U/mL (<35)
== END 2020-01-15 23:59 | disposition home or self-care (01) ==
LOC: INF 03:36
PROVIDERS: PCP Family Medicine; Visit Provider Internal Medicine Hematology & Oncology
DX: C22.1 Intrahepatic bile duct carcinoma (principal); Z45.2 Encounter for adjustment and management of vascular access device
CPT/HCPCS: 36591; 80053; 82378; 83735; 85025; 86301

== ENCOUNTER 2020-02-13 02:54 | Outpatient (RCR) | payer BC, SELFPAY ==
[2020-01-16] MEDS: Normal Saline Flush 10 ML SYR IVP (09:12)
[2020-01-16 09:16] LABS: Abs Immature Grans 0.04 k/cumm (0.0-0.09); Absolute Basophil Count 0.01 k/cumm (0.0-0.2); Absolute Eosinophil Count 0.12 k/cumm (0.0-0.7); Absolute Lymphocyte Count 0.68 k/cumm (1.2-3.4); Absolute Monocyte Count 0.36 k/cumm (0.11-0.7); Absolute Neutrophil Count 3.27 k/cumm (1.2-6.7); Basophils % 0.2; Eosinophils % 2.7; HCT 37.5 % (36.0-46.0); HGB 12.5 g/dL (12.0-15.5); Immature Grans % 0.9 %; Lymphocytes % 15.2; Mean Corp. HGB Concentration 33.3 g/dL (32.0-36.0); Mean Corpuscular Hemoglobin 30.7 pg (27.0-33.0); Mean Corpuscular Volume 92.1 fL (80-95); Mean Platelet Volume 11.4 fL (8.0-11.0); RBC 4.07 m/cumm (4.00-5.20); RBC Distribution Width 12.7 % (11.7-14.6); White Blood Cell Count 4.48 k/cumm (4.4-10.8)
[2020-01-16 09:36] LABS: Platelet Count 82 x1000/uL (130-400)
[2020-01-16 09:37] LABS: Diff Comment PLT Morph Reviewed; RBC Morphology Normal
[2020-01-16 09:41] LABS: ALT 85 U/L (14-59); AST 47 U/L (15-37); Albumin 2.9 g/dL (3.4-5.0); Alkaline Phosphatase 263 U/L (46-116); Anion Gap 6.7 mmol/L (3-11); BUN 14 mg/dL (7-18); Bilirubin, Total 1.7 mg/dL (0.2-1.0); CO2 33.3 mmol/L (21.0-32.0); CREATININE 0.79 mg/dL (0.55-1.02); Calcium 9.7 mg/dL (8.5-10.1); Chloride 97 mmol/L (98-107); Glucose 128 mg/dL (74-106); Sodium 137 mmol/L (136-145); Total Protein 7.4 g/dL (6.4-8.2)
[2020-01-16 09:46] LABS: Potassium 2.9 mmol/L (3.5-5.1)
[2020-01-19 09:49] LABS: CEA 30.9 ng/mL (See Note)
[2020-01-19 11:07] LABS: CA 19-9 6 U/mL (<35)
[2020-01-23] MEDS: Heparin 500 UNITS/5 ML SYRINGE IV (10:48)
[2020-01-23] MEDS: Normal Saline Flush 10 ML SYR IVP (10:48)
[2020-01-23 10:53] LABS: Abs Immature Grans 0.05 k/cumm (0.0-0.09); Absolute Eosinophil Count 0.02 k/cumm (0.0-0.7); Absolute Lymphocyte Count 0.98 k/cumm (1.2-3.4); Absolute Monocyte Count 0.15 k/cumm (0.11-0.7); Absolute Neutrophil Count 1.01 k/cumm (1.2-6.7); Eosinophils % 0.9; HCT 32.5 % (36.0-46.0); HGB 10.7 g/dL (12.0-15.5); Immature Grans % 2.3 %; Lymphocytes % 44.3; Mean Corp. HGB Concentration 32.9 g/dL (32.0-36.0); Mean Corpuscular Hemoglobin 30.7 pg (27.0-33.0); Mean Corpuscular Volume 93.4 fL (80-95); Mean Platelet Volume 9.4 fL (8.0-11.0); Monocytes % 6.8; Neutrophils % 45.7; RBC 3.48 m/cumm (4.00-5.20); RBC Distribution Width 12.7 % (11.7-14.6); White Blood Cell Count 2.21 k/cumm (4.4-10.8)
[2020-01-23 11:05] LABS: Diff Comment Diff Reviewed; Platelet Count 35 x1000/uL (130-400); RBC Morphology Normal
[2020-01-23 11:13] LABS: ALT 69 U/L (14-59); AST 52 U/L (15-37); Albumin 2.8 g/dL (3.4-5.0); Alkaline Phosphatase 238 U/L (46-116); Anion Gap 7.3 mmol/L (3-11); BUN 17 mg/dL (7-18); Bilirubin, Total 1.1 mg/dL (0.2-1.0); CO2 32.7 mmol/L (21.0-32.0); CREATININE 0.79 mg/dL (0.55-1.02); Calcium 9.6 mg/dL (8.5-10.1); Chloride 98 mmol/L (98-107); Glucose 128 mg/dL (74-106); Sodium 138 mmol/L (136-145); Total Protein 6.8 g/dL (6.4-8.2)
[2020-01-23 11:15] LABS: Potassium 2.9 mmol/L (3.5-5.1)
[2020-01-26 08:54] LABS: CEA 21.7 ng/mL (See Note)
[2020-01-26 10:17] LABS: CA 19-9 <2 U/mL (<35)
[2020-01-30] MEDS: Normal Saline Flush 10 ML SYR IVP (09:16)
[2020-01-30 09:26] LABS: Abs Immature Grans 0.37 k/cumm (0.0-0.09); HGB 10.7 g/dL (12.0-15.5); Mean Corp. HGB Concentration 31.5 g/dL (32.0-36.0); Mean Corpuscular Hemoglobin 30.6 pg (27.0-33.0); Mean Corpuscular Volume 97.1 fL (80-95); Mean Platelet Volume 10.3 fL (8.0-11.0); Platelet Count 249 x1000/uL (130-400); RBC Distribution Width 16.3 % (11.7-14.6); White Blood Cell Count 8.46 k/cumm (4.4-10.8)
[2020-01-30 09:35] LABS: ALT 42 U/L (14-59); AST 48 U/L (15-37); Albumin 2.6 g/dL (3.4-5.0); Alkaline Phosphatase 215 U/L (46-116); Anion Gap 6.5 mmol/L (3-11); BUN 17 mg/dL (7-18); Bilirubin, Total 1.7 mg/dL (0.2-1.0); CO2 29.5 mmol/L (21.0-32.0); CREATININE 0.77 mg/dL (0.55-1.02); Chloride 104 mmol/L (98-107); Glucose 117 mg/dL (74-106); Magnesium 1.5 mg/dL (1.8-2.4); Potassium 3.4 mmol/L (3.5-5.1); Sodium 140 mmol/L (136-145); Total Protein 6.8 g/dL (6.4-8.2)
[2020-01-30 09:47] LABS: Absolute Basophil Count 0.08 k/cumm (0.0-0.2); Absolute Eosinophil Count 0.08 k/cumm (0.0-0.7); Absolute Lymphocyte Count 0.68 k/cumm (1.2-3.4); Absolute Monocyte Count 1.52 k/cumm (0.11-0.7); Absolute Neutrophil Count 5.92 k/cumm (1.2-6.7)
[2020-01-30 09:48] LABS: Diff Comment Manual Differential; Poikilocytes 1+; Polychromasia Present
[2020-02-02 10:52] LABS: CEA 18.4 ng/mL (See Note)
[2020-02-02 11:09] LABS: CA 19-9 <2 U/mL (<35)
[2020-02-13] MEDS: Normal Saline Flush 10 ML SYR IVP (08:40)
[2020-02-13 09:03] LABS: Abs Immature Grans 0.23 k/cumm (0.0-0.09); Absolute Basophil Count 0.02 k/cumm (0.0-0.2); Absolute Eosinophil Count 0.01 k/cumm (0.0-0.7); Basophils % 0.2; Eosinophils % 0.1; HCT 32.4 % (36.0-46.0); HGB 10.4 g/dL (12.0-15.5); Mean Corp. HGB Concentration 32.1 g/dL (32.0-36.0); Mean Corpuscular Hemoglobin 31.6 pg (27.0-33.0); Mean Corpuscular Volume 98.5 fL (80-95); Platelet Count 163 x1000/uL (130-400); RBC 3.29 m/cumm (4.00-5.20); RBC Distribution Width 19.8 % (11.7-14.6); White Blood Cell Count 11.22 k/cumm (4.4-10.8)
[2020-02-13 09:15] LABS: ALT 46 U/L (14-59); AST 46 U/L (15-37); Albumin 2.5 g/dL (3.4-5.0); Alkaline Phosphatase 182 U/L (46-116); Anion Gap 8.3 mmol/L (3-11); BUN 20 mg/dL (7-18); Bilirubin, Total 2.1 mg/dL (0.2-1.0); CO2 29.7 mmol/L (21.0-32.0); Calcium 8.6 mg/dL (8.5-10.1); Chloride 100 mmol/L (98-107); Estimated GFR 56.37 (mL/min/1.73m2); Glucose 138 mg/dL (74-106); Potassium 3.2 mmol/L (3.5-5.1); Sodium 138 mmol/L (136-145)
[2020-02-13 09:23] LABS: Absolute Lymphocyte Count 1.01 k/cumm (1.2-3.4); Absolute Monocyte Count 1.23 k/cumm (0.11-0.7); Absolute Neutrophil Count 8.86 k/cumm (1.2-6.7); Acanthocytes 1+; Diff Comment Manual Differential
[2020-02-13 09:24] LABS: Poikilocytes 1+; Polychromasia Present
[2020-02-16 10:35] LABS: CEA 15.1 ng/mL (See Note)
[2020-02-16 12:39] LABS: CA 19-9 <2 U/mL (<35)
== END 2020-02-15 23:59 | disposition home or self-care (01) ==
LOC: INF 02:54
PROVIDERS: PCP Family Medicine; Visit Provider Internal Medicine Hematology & Oncology
DX: C22.1 Intrahepatic bile duct carcinoma (principal); Z45.2 Encounter for adjustment and management of vascular access device
CPT/HCPCS: 36591; 80053; 82378; 83735; 85025; 86301

== ENCOUNTER 2020-02-13 10:31 | Emergency (ER) | payer BC, SELFPAY ==
[2020-02-13] VITALS (27 sets, daily range): BP systolic 119–148; BP diastolic 73–84; PULSE 84–101; RESP 15–29; TEMP 37.2; O2SAT 94–99
--- NOTE | 2020-02-13 10:45 | DI.CT_ITS ---
EXAM: CT CHEST PE CTA CLINICAL HISTORY: Hypoxia, tachycardia, stage IV liver CA. TECHNIQUE: Imaging Protocol: Axial CT angiography was performed with multi-slice acquisition and mu lti-planar and/or 3D reconstructions. CONTRAST MATERIAL: Intravenous: Omnipaque 350 Contrast volume:100 ml COMPARISON: CT CT CHEST W from 12/12/[address] ABDOMEN PELVIS W from 12/22/2019 FINDINGS: Pulmonary Arteries: There are large emboli seen in both main pulmonary arteries and extending into up per and lower lobe branch vessels. There is outward septal bowing of the right ventricle as well as dilatation of the right atrium and v entricle and reflux of contrast into the IVC. There are small bilateral pleural effusions which are new since the previous exam. Lungs are difficult to evaluate due to respiratory motion. There has been interval increase in size of bilateral lower lobe pulmonary nodules. No adenopathy is seen. Aorta: Thoracic aorta non-dilated. No dissection. Upper abdomen: Unremarkable. Bones: No lytic or blastic lesions. Tubes, Catheters, and Lines: Port over the right pectoral muscle IMPRESSION: Pulmonary emboli in both main pulmonary arteries and extending into upper and lower lobe branches. E vidence of right heart strain. Small bilateral pleural effusions.. RADIATION DOSE DELIVERED: Total DLP DATA REPOSITORY: All CT scans at this facility are submitted to the National Radiology Data Registry (NRDR) Dose Index Registry (DIR) with the [employer] (A[employer]). RADIATION OPTIMIZATION: All CT scans at this facility use at least one of these dose optimization te chniques: automated exposure control; mA and/or kV adjustment per patient size (includes targeted exa ms where dose is matched to clinical indication); or iterative reconstruction.
--- NOTE | 2020-02-13 11:11 | W.ED.GENAD ---
Discharge Plan Discharge Details Chief Complaint: SOB Primary Care Provider: Hiral Lopez V ED Provider: Raimundo Gilmore Home Meds and New Rx's Prescriptions: No Action atorvastatin [Lipitor] 40 MG tablet 40 mg PO HS RF: 0 atorvastatin [Lipitor] 20 MG tablet 20 mg PO HS RF: 0 citalopram [Celexa] 20 MG tablet 20 mg PO HS RF: 0 hydrochlorothiazide 25 MG tablet 25 mg PO DAILY RF: 0 epinephrine [EpiPen 2-Alpesh] 0.3 MG/0.3 ML auto-injector 0.3 mg IM ONCE PRNRF: 0 Xvinmsef-Vyiqwx-NRH with vit D 1 EACH tablet 1 ea PO DAILY RF: 0 calcium carbonate-vitamin D3 1 EACH tablet 1 ea PO DAILY RF: 0 prochlorperazine maleate [Compazine] 10 mg Tablet 10 mg PO Q6H PRNRF: 0 hydromorphone 2 mg Tablet 2 mg PO Q3H PRN PRNRF: 0 morphine [MS Contin] 15 mg Tablet Extended Release 15 mg PO Q12H RF: 0 enoxaparin 100 mg/mL syringe 100 mg subcut BID RF: 0 potassium citrate 10 mEq (1,080 mg) Tablet Extended Release 10 meq PO DAILY RF: 0 famotidine 20 mg Tablet 20 mg PO QHS RF: 0 Discharge Data Date/Time: 02/25/20 23:59 Discharge Date/Time-TO BE ENTERED AT DEPARTURE: 02/13/20 14:19 Medical Decision Making <JANAE Neri - Last Filed: 02/13/20 12:48> 59-year-old female receiving chemotherapy for stage IV liver cancer presents to the ER today for shortness of breath, tachycardia, hypoxia that was noted at the [facility]. Upon presentation her O2 sats are 94% on room air but she does subjectively report shortness of breath. Given her subjective complaint and report from the cancer center, certainly concerning for PE. Less suspicious for infectious etiology. Patient denies any chest pain whatsoever. Lower suspicion for ACS. Will obtain cardiac work-up and obtain. We will also obtain chest CTA as suspicion for PE is high. Patient denies recent travel or sick contacts, but given her subjective complaint of shortness of breath will be considered a person of interest. Patient was satting 99% on 2 L nasal cannula. Case was immediately discussed with Dr. Henderson. Laboratory values reveal a white blood cell count of 9.96, hemoglobin 10.0 hematocrit 30.9 platelet count 134. Absolute neutrophils 7.57 INR 1.3 PT 12.6. Potassium 3.2, magnesium 1.1. Patient given 1 g IV magnesium and then will replenish potassium. Total bili of 2.1 AST 43 alk phosphatase 174. BNP 4698. Albumin 2.5. CT imaging resulted revealing a bilateral PE in the main pulmonary artery bilaterally in the upper and lower branches with evidence of right heart strain. Bilateral pleural effusions. Case was once again discussed with Dr. Henderson. I discussed findings with patient. Patient denies GI bleeding, recent surgery, recent intracranial hemorrhage, is agreeable to receiving subcutaneous Lovenox. Patient given 1 mg/kg. Dr. Henderson reached out to [facility] regarding transfer, please see his note. Medical Records Medical records reviewed: Yes I reviewed the patient's medical records. Imaging Data Radiologic Study: Attestation: I personally reviewed and interpreted this imaging study as follows: Imaging: X-Ray Radiologist's impression: Bilateral PE in the main pulmonary artery in the both upper and lower branches, right heart strain present. Bilateral pleural effusions Lab Data Lab results reviewed: Yes I reviewed the patient's lab results. Labs: Laboratory Tests Range/Units 02/13/20 02/13/20 02/13/20 11:00 11:00 11:00 WBC (4.4-10.8) k/cumm RBC (4.00-5.20) m/cumm Hgb (12.0-15.5) g/dL Hct (36.0-46.0) % MCV (80-95) fL MCH (27.0-33.0) pg MCHC (32.0-36.0) g/dL RDW (11.7-14.6) % Plt Count (130-400) x1000/uL MPV (8.0-11.0) fL Immature Gran % Neutrophils % Band Neutrophils % % Lymphocytes % Monocytes % Eosinophils % Basophils % Metamyelocytes % % Myelocytes % % Absolute Neutrophils (1.2-6.7) k/cumm Absolute Lymphocytes (1.2-3.4) k/cumm Absolute Monocytes (0.11-0.7) k/cumm Absolute Eosinophils (0.0-0.7) k/cumm Absolute Basophils (0.0-0.2) k/cumm Differential Comment RBC Morphology Polychromasia Poikilocytosis Acanthocytes (Spur) PT (9.3-11.0) sec 12.6 H INR (0.9-1.1) 1.3 H APTT (21.0-31.4) sec 24.9 Sodium (136-145) mmol/L 138 Potassium (3.5-5.1) mmol/L 3.2 L Chloride (98-107) mmol/L 100 Carbon Dioxide (21.0-32.0) mmol/L 31.3 Anion Gap (3-11) mmol/L 6.7 BUN (7-18) mg/dL 20 H Creatinine (0.55-1.02) mg/dL 0.93 Estimated GFR/1.73 m2 (mL/min/1.73m2) >= 60.00 Glucose (74-106) mg/dL 134 H Calcium (8.5-10.1) mg/dL 8.7 Magnesium (1.8-2.4) mg/dL 1.1 L Total Bilirubin (0.2-1.0) mg/dL 2.1 H AST (15-37) U/L 43 H ALT (14-59) U/L 41 Alkaline Phosphatase (46-116) U/L 176 H Troponin I (<0.06) ng/mL 0.05 NT-Pro-B Natriuret Pep (<300) pg/mL 4690 H Total Protein (6.4-8.2) g/dL 6.9 Albumin (3.4-5.0) g/dL 2.5 L Range/Units 02/13/20 11:00 WBC (4.4-10.8) k/cumm 9.96 RBC (4.00-5.20) m/cumm 3.14 L Hgb (12.0-15.5) g/dL 10.0 L Hct (36.0-46.0) % 30.9 L MCV (80-95) fL 98.4 H MCH (27.0-33.0) pg 31.8 MCHC (32.0-36.0) g/dL 32.4 RDW (11.7-14.6) % 19.5 H Plt Count (130-400) x1000/uL 134 MPV (8.0-11.0) fL 11.0 Immature Gran % See Differential Neutrophils % 74.0 Band Neutrophils % % 2.0 Lymphocytes % 10.0 Monocytes % 11.0 Eosinophils % 0.0 Basophils % 0.0 Metamyelocytes % % 2.0 Myelocytes % % 1.0 Absolute Neutrophils (1.2-6.7) k/cumm 7.57 H Absolute Lymphocytes (1.2-3.4) k/cumm 1.00 L Absolute Monocytes (0.11-0.7) k/cumm 1.10 H Absolute Eosinophils (0.0-0.7) k/cumm 0.00 Absolute Basophils (0.0-0.2) k/cumm 0.00 Differential Comment Manual differential RBC Morphology See below Polychromasia Present Poikilocytosis 1+ Acanthocytes (Spur) 1+ PT (9.3-11.0) sec INR (0.9-1.1) APTT (21.0-31.4) sec Sodium (136-145) mmol/L Potassium (3.5-5.1) mmol/L Chloride (98-107) mmol/L Carbon Dioxide (21.0-32.0) mmol/L Anion Gap (3-11) mmol/L BUN (7-18) mg/dL Creatinine (0.55-1.02) mg/dL Estimated GFR/1.73 m2 (mL/min/1.73m2) Glucose (74-106) mg/dL Calcium (8.5-10.1) mg/dL Magnesium (1.8-2.4) mg/dL Total Bilirubin (0.2-1.0) mg/dL AST (15-37) U/L ALT (14-59) U/L Alkaline Phosphatase (46-116) U/L Troponin I (<0.06) ng/mL NT-Pro-B Natriuret Pep (<300) pg/mL Total Protein (6.4-8.2) g/dL Albumin (3.4-5.0) g/dL <Dale Henderson MD - Last Filed: 03/02/20 08:56> Patient seen, examined, and discussed with JANAE Gilmore. I agree with treatment plan as discussed/documented. CT of the chest was interpreted by radiology: Pulmonary emboli in both main pulmonary arteries and extending into upper and lower lobe branches. Evidence of right heart strain. Small bilateral pleural effusions.. Creatinine normal. Plan to start Lovenox 1 mg/kg subcutaneous. Screening ECG was reviewed and interpreted by me: Sinus rhythm 85 bpm, low voltage in limb leads, right ventricular hypertrophy noted, negative T waves lead V1 to V5. EKG consistent with right heart strain. 12:15 -- [facility] [place] to request emergent transfer and they were unable to accept the patient in transfer as a currently lack capacity. Call to [facility] to request emergent transfer. Awaiting callback. 12:41 --I spoke with Dr. Alvarado, oncology at [facility], discussed ED presentation and course, she will accept the patient in transfer. HPI <JANAE Neri - Last Filed: 02/13/20 12:48> General Mode of arrival: ambulatory. Date/Time Provider Initiated Documentation: 02/13/20 10:40. Limitations to Documentation: no limitations. Information obtained by: patient. HPI Narrative: This is a 59-year-old female with history of stage IV liver CA, presented to the [facility] today for her chemotherapy treatment was noted to have O2 sats in the 80s and a heart rate of 114, subsequently sent to the ER for evaluation. 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 She reports a history of GERD, chronic leg swelling bilaterally, hyperlipidemia. She reports a history of mild dry chronic cough, shortness of breath and tells me that upon presentation for her chemotherapy she felt at baseline. Once they told her her O2 levels were low she reported that may be her shortness of breath was worse over the past few days. She denies headache, neck pain, fever, chest pain, productive cough, abdominal pain, nausea, vomiting, increased swelling in her legs, any pain in her legs whatsoever. Denies history of PE or DVT. Denies cardiac history. Patient was never a smoker. Upon presentation, O2 sat of 94 on room air, reports subjective shortness of breath. Denies recent travel or obvious known sick contact Related Data Home Medications Medication Instructions Recorded Confirmed Epygxvli-[id number]-GXC with vit D 1 ea PO DAILY 06/28/15 02/21/20 atorvastatin [Lipitor] 20 mg PO HS 06/28/15 02/21/20 atorvastatin [Lipitor] 40 mg PO HS 06/28/15 02/21/20 calcium carbonate-vitamin D3 1 ea PO DAILY 06/28/15 02/21/20 citalopram [Celexa] 20 mg PO HS 06/28/15 02/21/20 epinephrine [EpiPen 2-Alpesh] 0.3 mg IM ONCE PRN 06/28/15 02/21/20 hydrochlorothiazide 25 mg PO DAILY tab-cap 06/28/15 02/21/20 potassium citrate 10 meq PO DAILY 06/05/18 02/21/20 famotidine 20 mg PO QHS 12/22/19 02/21/20 hydromorphone 2 mg PO Q3H PRN PRN 02/13/20 02/21/20 morphine [MS Contin] 15 mg PO Q12H 02/13/20 02/21/20 prochlorperazine maleate 10 mg PO Q6H PRN 02/13/20 02/21/20 [Compazine] enoxaparin 100 mg SUBCUT BID 02/21/20 02/21/20 Allergies Allergy/AdvReac Type Severity Reaction Status Date / Time shellfish derived Allergy Severe Anaphylaxsi Unverified 02/13/20 11:02 s shrimp Allergy Unknown Unverified 02/13/20 11:02 General Stated Complaint: SOB ERVIN: 2 Review of Systems <JANAE Neri - Last Filed: 02/13/20 12:48> Constitutional Constitutional: Denies fever(s) and Denies weakness Eyes Eyes: Denies change in vision ENT Ears, Nose, Mouth, and Throat: Denies sore throat Cardiovascular Cardiovascular: Denies chest pain and Reports dyspnea Respiratory Respiratory: Reports cough and Reports dyspnea Gastrointestinal Gastrointestinal: Denies abdominal pain, Denies nausea and Denies vomiting Genitourinary Genitourinary: Denies dysuria Musculoskeletal Musculoskeletal: Denies back pain, Denies numbness and Denies tingling Integumentary/Breasts Skin/Breast: Denies rash Neurologic Neurologic: Denies numbness, Denies tingling and Denies weakness Hematologic/Lymphatic Hematologic/Lymphatic: Denies easy bleeding and Reports easy bruising PFSH <JANAE Neri - Last Filed: 02/13/20 12:48> Medical History Posterior subcapsular age-related cataract of left eye (Resolved) Social History Smoking/Tobacco Use Status: Never Alcohol Intake: never Drug use: Never Substance use type: does not use Do you feel safe at home: Yes Do you feel safe in your relationship?: Yes Exam <JANAE Neri - Last Filed: 02/13/20 12:48> Const General: cooperative, comfortable and no acute distress Orientation: alert and awake [facility] Head: normal to inspection, normocephalic and atraumatic Mouth: moist mucous membranes Throat: posterior oropharynx normal Eyes Conjunctivae: conjunctivae normal Neck Neck: normal visual inspection, full ROM, trachea midline, supple and nontender Chest Chest: normal inspection of the chest and normal palpation of entire chest wall Resp Effort & Inspection: normal respiratory effort and able to speak in complete sentences Auscultation: clear to auscultation bilaterally Cardio Rate: regular rate Rhythm: regular rhythm GI Palpation: soft and nontender Back/Spine/Pelvis Back: No back tenderness Skin General skin exam: no rashes or lesions noted Neuro General: patient alert, patient awake, patient oriented x3, moves all extremities and no focal motor deficits Motor: muscle tone normal throughout Sensory Exam: no sensory deficits noted Extrem General: no calf tenderness and pedal edema bilaterally (2+ bilaterally) Psych Appearance: grossly normal Mental Status: mental status grossly normal Course <JANAE Neri - Last Filed: 02/13/20 12:48> Vital Signs Vital signs: Vital Signs Temperature 37.2 C 02/13/20 10:47 Pulse 92 H 02/13/20 10:47 Respiratory Rate 22 02/13/20 10:47 Blood Pressure 148/84 H 02/13/20 10:47 Pulse Oximetry 94 L 02/13/20 10:47 Temperature 37.2 C 02/13/20 10:47 Temperature Source Skin 02/13/20 10:47 Pulse 92 H 02/13/20 10:47 Respiratory Rate 22 02/13/20 10:47 Blood Pressure 148/84 H 02/13/20 10:47 Pulse Oximetry 94 L 02/13/20 10:47 Oxygen Delivery Method Room Air 02/13/20 10:47 Oxygen Flow Rate 0 02/13/20 10:47 Pain Level 0 02/13/20 10:47 Critical Care Time <JANAE Neri - Last Filed: 02/13/20 12:48> Critical Care Time Critical Care Time: Yes Total Critical Care Time: 40 Attestation: Upon my evaluation, this patient had a high probability of clinically significant, life-threatening deterioration due to their current medical conditions, which required my direct attention, intervention, and personal management. I have personally provided greater than 30 minutes of critical care time exclusive of the time spend on separately billable procedures. Time includes obtaining a history, examining the patient, pulse oximetry, review of laboratory data, radiology results, discussion with consultants, arranging urgent treatment with development of a management plan, evaluation of patient's response to treatment, and monitoring for potential decompensation. Interventions were performed as documented above. <Dale Henderson MD - Last Filed: 03/02/20 08:56> Critical Care Time Critical Care Time: Yes Total Critical Care Time: 40 Attestation: I spent greater than 40 minutes addressing this patient's immediate life threats
[2020-02-13 11:14] LABS: Abs Immature Grans 0.17 k/cumm (0.0-0.09); HCT 30.9 % (36.0-46.0); Mean Corp. HGB Concentration 32.4 g/dL (32.0-36.0); Mean Corpuscular Hemoglobin 31.8 pg (27.0-33.0); Mean Corpuscular Volume 98.4 fL (80-95); Platelet Count 134 x1000/uL (130-400); RBC 3.14 m/cumm (4.00-5.20); RBC Distribution Width 19.5 % (11.7-14.6); White Blood Cell Count 9.96 k/cumm (4.4-10.8)
[2020-02-13 11:28] LABS: INR 1.3 (0.9-1.1); PTT Activated 24.9 sec (21.0-31.4); Prothrombin Time 12.6 sec (9.3-11.0)
[2020-02-13 11:30] LABS: ALT 41 U/L (14-59); AST 43 U/L (15-37); Albumin 2.5 g/dL (3.4-5.0); Alkaline Phosphatase 176 U/L (46-116); Anion Gap 6.7 mmol/L (3-11); BUN 20 mg/dL (7-18); Bilirubin, Total 2.1 mg/dL (0.2-1.0); CO2 31.3 mmol/L (21.0-32.0); CREATININE 0.93 mg/dL (0.55-1.02); Calcium 8.7 mg/dL (8.5-10.1); Chloride 100 mmol/L (98-107); Glucose 134 mg/dL (74-106); Potassium 3.2 mmol/L (3.5-5.1); Sodium 138 mmol/L (136-145); Total Protein 6.9 g/dL (6.4-8.2); Troponin I 0.05 ng/mL (<0.06)
[2020-02-13 11:35] LABS: Absolute Neutrophil Count 7.57 k/cumm (1.2-6.7); Magnesium 1.1 mg/dL (1.8-2.4); NT-proBNP 4690 pg/mL (<300)
[2020-02-13 11:36] LABS: Acanthocytes 1+; Diff Comment Manual Differential; Poikilocytes 1+; Polychromasia Present
[2020-02-13] MEDS: Omnipaque 350 MG/ML 100 ML BTL IJ (11:52)
[2020-02-13] MEDS: Normal Saline - Diluent 50 ML VIAL IV (11:54)
[2020-02-13] MEDS: HYDROmorphone 2 MG TAB PO (12:17)
[2020-02-13] MEDS: Enoxaparin 100 MG/ML SYR SC (12:21)
[2020-02-13] MEDS: MAGNESIUM SULFATE 1 GM/100 ML BAG IVPB (12:39)
[2020-02-13] MEDS: Normal Saline Flush 10 ML SYR IVP (13:50)
[2020-02-13 14:37] LABS: Troponin I < 0.05 ng/mL (<0.06)
== END 2020-02-13 14:19 ==
LOC: ER 11:02
PROVIDERS: Emergency Provider Physician Assistant; PCP Family Medicine
DX: C22.8 Malignant neoplasm of liver, primary, unspecified as to type (principal); R09.02 Hypoxemia; R00.0 Tachycardia, unspecified; E83.42 Hypomagnesemia; E87.6 Hypokalemia; Z45.2 Encounter for adjustment and management of vascular access device; Z79.899 Other long term (current) drug therapy
CPT/HCPCS: 36592; 71275; 80053; 96361; 96365; 96366; 96375; 99291; 99292; 83735; 83880; 84484; 85025; 85610; 85730; J1650; J3475; J3490

== ENCOUNTER 2020-02-21 10:51 | Emergency (ER) | payer BC, SELFPAY ==
[2020-02-21 11:04] VITALS: BP 188/99; PULSE 97; RESP 20; TEMP 36.5; O2SAT 99
--- NOTE | 2020-02-21 11:08 | W.ED.GENAD ---
Discharge Plan Disposition Patient Disposition: HOME Condition: Improving Discharge Details Chief Complaint: Abd Prob Clinical Impression: Constipation Primary Care Provider: Hiral Lopez V ED Provider: Sanjuana Grey Home Meds and New Rx's Prescriptions: Continued atorvastatin [Lipitor] 40 MG tablet 40 mg PO HS RF: 0 atorvastatin [Lipitor] 20 MG tablet 20 mg PO HS RF: 0 citalopram [Celexa] 20 MG tablet 20 mg PO HS RF: 0 hydrochlorothiazide 25 MG tablet 25 mg PO DAILY RF: 0 epinephrine [EpiPen 2-Alpesh] 0.3 MG/0.3 ML auto-injector 0.3 mg IM ONCE PRNRF: 0 Aiusurkl-Tyvcof-EYK with vit D 1 EACH tablet 1 ea PO DAILY RF: 0 calcium carbonate-vitamin D3 1 EACH tablet 1 ea PO DAILY RF: 0 prochlorperazine maleate [Compazine] 10 mg Tablet 10 mg PO Q6H PRNRF: 0 hydromorphone 2 mg Tablet 2 mg PO Q3H PRN PRNRF: 0 morphine [MS Contin] 15 mg Tablet Extended Release 15 mg PO Q12H RF: 0 enoxaparin 100 mg/mL syringe 100 mg subcut BID RF: 0 potassium citrate 10 mEq (1,080 mg) Tablet Extended Release 10 meq PO DAILY RF: 0 famotidine 20 mg Tablet 20 mg PO QHS RF: 0 Discharge Instructions Instructions: Constipation (ED) Additional Instructions: Try to encourage hydration. I know this is difficult the frequent sips may work well for you. 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 You may use milk of magnesia for acute constipation if needed. You may also try suppositories if this is unsuccessful. Please follow-up with palliative care as previously discussed. I would like for you to be reevaluated this week. If you develop fever/chills, increased pain or other new/worsening symptom please seek care urgently once again. Referrals: Hiral Lopez MD [Primary Care Provider] - Discharge Data Discharge Date/Time-TO BE ENTERED AT DEPARTURE: 02/21/20 14:35 Medical Decision Making <JANAE Mota - Last Filed: 02/22/20 11:06> Patient is a pleasant 59-year-old female presenting today with chief complaint of constipation. Patient has been on morphine and Dilaudid for the past month as result of discomfort she is been having from liver cancer. She reports that she is been taking the narcotics to times per day. She reports that since then, she been having difficulty with constipation. States that she has had issues like this historically. She reports that she is not had a bowel movement in the past 2 days but feels that it has progressively worsening over time. She endorses severe rectal discomfort and feels that there is a large quantity of stool in the rectum. She denies any blood in her stool. Has been having watery stools frequently has been incontinent of this. No fevers or chills. No change in urinary habits. She denies any abdominal discomfort. No nausea or vomiting On exam, patient appears nontoxic. She does appear chronically ill and is obese. Abdomen is benign. She has no abdominal discomfort. Rectal exam reveals thin stool leaking out of rectum. With good rectal tone. A stool ball is palpated. This does feel fairly soft. However, I am having difficulty removing any stool burden secondary to moving when attempted. I was able to break this up. We will have the patient attempt to have a bowel movement as the digital stimulation and smaller fragments of stool may be able to be passed. Patient had small bowel movement does feel somewhat improved. Repeat rectal exam was performed at this point, large amount of stool was able to be removed digitally. Patient continues to feel improved after this. Patient had more BM, is feeling improved and requesting discharge home. She states that a new medication was called into pharmacy for her, will call to see what this is. Docusate is reported to be the medication that was called in. I advised hydration. She reports that she has not been hydrating much since beginning the narcotics. We did discuss that the dehydration and chronic narcotic use may be contributing to her constipation. We did discuss medications that she could use if she develops severe recurrent constipation. She was given return precautions. She will follow-up with primary care this week for reevaluation. Patient has been referred to palliative care and reports that she should have follow-up appointment with them soon. All of her questions and concerns were addressed and she is agreement this plan. <Jai Fontaine MD - Last Filed: 02/21/20 14:46> Patient seen, examined, discussed with Ro Grey. I agree with her assessment and plan of care. Please see her note for details. HPI <JANAE Mota - Last Filed: 02/22/20 11:06> General Mode of arrival: wheelchair. Date/Time Provider Initiated Documentation: 02/21/20 10:59. Limitations to Documentation: no limitations. Information obtained by: patient and RN notes reviewed. History of Present Illness 59 year old F presents to the emergency department with the chief complaint of constipation, described as severe and similar to prior episodes, with intensity rated at 9. Quality is described as aching, and is localized to the buttocks. Patient reports no radiation. Patient started experiencing this day(s) (2) and it has been constant. No relieving factors improve symptom(s), No exacerbating factors reported . Patient notes denies chest pain, fever/chills, loss of appetite and nausea/vomiting. Patient did receive the following treatments prior to arrival, other (mirilax) Related Data Home Medications Medication Instructions Recorded Confirmed Eluiiwue-Uclenl-OCZ with vit D 1 ea PO DAILY 06/28/15 02/21/20 atorvastatin [Lipitor] 20 mg PO HS 06/28/15 02/21/20 atorvastatin [Lipitor] 40 mg PO HS 06/28/15 02/21/20 calcium carbonate-vitamin D3 1 ea PO DAILY 06/28/15 02/21/20 citalopram [Celexa] 20 mg PO HS 06/28/15 02/21/20 epinephrine [EpiPen 2-Alpesh] 0.3 mg IM ONCE PRN 06/28/15 02/21/20 hydrochlorothiazide 25 mg PO DAILY tab-cap 06/28/15 02/21/20 potassium citrate 10 meq PO DAILY 06/05/18 02/21/20 famotidine 20 mg PO QHS 12/22/19 02/21/20 hydromorphone 2 mg PO Q3H PRN PRN 02/13/20 02/21/20 morphine [MS Contin] 15 mg PO Q12H 02/13/20 02/21/20 prochlorperazine maleate 10 mg PO Q6H PRN 02/13/20 02/21/20 [Compazine] enoxaparin 100 mg SUBCUT BID 02/21/20 02/21/20 Allergies Allergy/AdvReac Type Severity Reaction Status Date / Time shellfish derived Allergy Severe Anaphylaxsi Unverified 02/13/20 11:02 s shrimp Allergy Unknown Unverified 02/13/20 11:02 General Stated Complaint: Abd Prob ERVIN: 3 Review of Systems <JANAE Mota - Last Filed: 02/22/20 11:06> Constitutional Constitutional: Reports as per HPI, Denies chills, Denies fatigue, Denies fever(s) and Denies headache(s) ENT Ears, Nose, Mouth, and Throat: Denies headache(s) Cardiovascular Cardiovascular: Reports as per HPI, Denies chest pain and Reports dyspnea (improving from recent admission for PE, on lovenox) Respiratory Respiratory: Reports as per HPI, Denies cough and Reports dyspnea (improving from recent admission for PE, on lovenox) Gastrointestinal Gastrointestinal: Reports as per HPI Musculoskeletal Musculoskeletal: Reports as per HPI and Denies back pain Integumentary/Breasts Skin/Breast: Reports as per HPI and Denies rash Neurologic Neurologic: Reports as per HPI and Denies headache(s) Endocrine Endocrine: Denies fatigue PFSH <JANAE Mota - Last Filed: 02/22/20 11:06> Medical History Posterior subcapsular age-related cataract of left eye (Resolved) Social History Smoking/Tobacco Use Status: Never Alcohol Intake: never Drug use: Never Substance use type: does not use Do you feel safe at home: Yes Do you feel safe in your relationship?: Yes Exam <JANAE Mota - Last Filed: 02/22/20 11:06> Const General: cooperative, healthy appearing, comfortable, no acute distress and well developed Nutritional Appearance: well nourished and obese Orientation: alert and awake [facility] Head: normal to inspection Mouth: moist mucous membranes Resp Effort & Inspection: normal respiratory effort, able to speak in complete sentences and no respiratory distress Auscultation: clear to auscultation bilaterally, no rales, no rhonchi and no wheezes Cardio Rate: regular rate Rhythm: regular rhythm Heart Sounds: S1 normal and S2 normal GI Inspection: normal to inspection, obesity, no visible herniation and no visible pulsation Palpation: soft, no hepatosplenomegaly, no aortic enlargement, not firm, no guarding, no hernias, no pulsatile masses and nontender Percussion: normal to percussion Auscultation: hypoactive bowel sounds Rectal Exam - female: visual inspection normal, normal sphincter tone, No abnormal stool and fecal impaction (Soft stool ball is palpated in rectal vault) Back/Spine/Pelvis Back: no CVA tenderness Skin General skin exam: no rashes or lesions noted Trauma: no lacerations or abrasions Neuro General: patient alert and patient awake Cognition: normal cognition Speech: speech normal Gait: normal gait Psych Appearance: grossly normal and well kempt Mental Status: mental status grossly normal Speech and Movement: speech and movement normal Course <JANAE Mota - Last Filed: 02/22/20 11:06> Vital Signs Vital signs: Vital Signs Temperature 36.5 C 02/21/20 11:04 Pulse 97 H 02/21/20 11:04 Respiratory Rate 20 02/21/20 11:04 Blood Pressure 188/99 H 02/21/20 11:04 Pulse Oximetry 99 02/21/20 11:04 Temperature 36.5 C 02/21/20 11:04 Temperature Source Skin 02/21/20 11:04 Pulse 97 H 02/21/20 11:04 Respiratory Rate 20 02/21/20 11:04 Respiratory Effort Non-Labored 02/21/20 11:06 Blood Pressure 188/99 H 02/21/20 11:04 Blood Pressure Position Sitting 02/21/20 11:04 Pulse Oximetry 99 02/21/20 11:04 Oxygen Delivery Method Room Air 02/21/20 11:04 Oxygen Flow Rate 0 02/21/20 11:04 Pain Level 9 02/21/20 11:04
== END 2020-02-21 14:35 | disposition home or self-care (01) ==
PROVIDERS: Emergency Provider Physician Assistant; PCP Family Medicine
DX: K59.00 Constipation, unspecified (principal); T40.2X5A Adverse effect of other opioids, initial encounter; Z79.891 Long term (current) use of opiate analgesic; C22.8 Malignant neoplasm of liver, primary, unspecified as to type
CPT/HCPCS: 99282